=== PATIENT | female | born 1985 | race Caucasian/White ===

== ENCOUNTER 2017-06-22 00:52 | Observation (INO) | payer MEDICAID ==
[~2017-06-22] VITALS: Ht 167.6 cm; Wt 66.2 kg
[2017-06-22] MEDS ORDERED: PNV1TABL76 MT (01:15)
== END 2017-06-22 02:50 | disposition home or self-care (01) ==
LOC: L&D 00:52
PROVIDERS: ADMIT Obstetrics & Gynecology; ATTEND Obstetrics & Gynecology
DX: O26.893 Other specified pregnancy related conditions, third trimester (principal); R10.30 Lower abdominal pain, unspecified; Z3A.40 40 weeks gestation of pregnancy
CPT/HCPCS: 99281; G0378

== ENCOUNTER 2021-12-29 18:44 | Emergency (ER) | payer MEDICAID ==
[~2021-12-29] VITALS: Ht 157.5 cm; Wt 67.0 kg
[~2021-12-29 18:44] MED LIST: PNV1TABL76 MT
[2021-12-29 18:49] VITALS: BP 109/65
[2021-12-29] MEDS ORDERED: VISCOUS LIDOCAINE 2% 15 ML UDC PO STA (21:20)
[2021-12-29] MEDS ORDERED: HYDROCODONE/ACETAMINOPHEN 5/325MG TABLET PO STA (21:20)
[2021-12-29] MEDS ORDERED: MAGNESIUM/ALUMINUM HYDROXIDE/SIMETHICONE 30ML UDC PO STA (21:20)
[2021-12-29 23:38] LABS: HEMATOCRIT. 37.9 % (36.0-48.0); HEMOGLOBIN. 12.8 g/dL (12.0-16.0); MEAN CORPUSCULAR HEMOGLOBIN 30.6 pg (28.0-32.0); MEAN CORPUSCULAR VOLUME 90.7 fL (81.0-99.0); MEAN PLATELET VOLUME 10.7 fl (7.4-10.4); PLATELET 136 x1000/uL (130-400); RED BLOOD CELL COUNT 4.18 mill/uL (4.2-5.4); RED CELL DISTRIBUTION WIDTH 13.7 % (11.6-14.6)
[2021-12-29 23:49] LABS: CHLORIDE 107 mEq/L (98-107)
[2021-12-29 23:54] LABS: HCG SCREEN NEGATIVE
[2021-12-30 04:49] LABS: PLATELET ESTIMATE NORMAL
== END 2021-12-30 00:33 | disposition left against medical advice (07) ==
LOC: ER 18:44
DX: Z53.21 Procedure and treatment not carried out due to patient leaving prior to being seen by health care provider (principal)
CPT/HCPCS: 36415; 80053; 84703; 85025